=== PATIENT | female | born 1995 | race African-American/Black ===

== ENCOUNTER 2016-06-26 11:40 | Emergency (ER) | payer MEDICAID ==
--- NOTE | 2016-06-26 12:12 | ER Document Report ---
HPI - HPI Pain Level: 4 Context: 21 yo female c/o pain to right ear x 1 day. no fever. + sinus pressure Associated Symptoms: Sinus pain/drainage Exacerbated by: Denies Relieved by: Denies - ROS Systems Reviewed and Negative: Yes All other systems reviewed and negative - REPRODUCTIVE Reproductive: DENIES: : - DERM Skin Color: Normal Past Medical History - Social History Smoking Status: Never Smoker Frequency of alcohol use: None Drug Abuse: None Lives with: Family Family History: Arthritis, CVA, DM, Hypertension, Malignancy, Thyroid Disfunction Patient has suicidal ideation: No Patient has homicidal ideation: No - Past Medical History Cardiac Medical History: Reports: Hx Hypercholesterolemia Denies: Hx Atrial Fibrillation, Hx Congestive Heart Failure, Hx Heart Attack , Hx Hypertension Pulmonary Medical History: Reports: Hx Asthma - childhood Denies: Hx Bronchitis, Hx COPD, Hx Pneumonia, Hx Tuberculosis Neurological Medical History: Reports: Hx Migraine Renal/ Medical History: Reports: Hx Ovarian Cysts. Denies: Hx Peritoneal Dialysis GI Medical History: Denies: Hx Gastroesophageal Reflux Disease Musculoskeltal Medical History: Reports Hx Musculoskeletal Trauma - possible rib fraction Psychiatric Medical History: Reports: Hx Post Traumatic Stress Disorder Denies: Hx Bipolar Disorder, Hx Depression, Hx Schizophrenia Traumatic Medical History: Reports: Hx Fractures - possible rib fractures Past Surgical History: Reports: Hx Abdominal Surgery - 2016, Hx Section - 2014. Denies: Hx Appendectomy, Hx Bowel Surgery, Hx Cholecystectomy, Hx Hysterectomy, Hx Mastectomy, Hx Tonsillectomy, Hx Tubal Ligation - Immunizations Immunizations up to date: No Hx Diphtheria, Pertussis, Tetanus Vaccination: No Vertical Provider Document - CONSTITUTIONAL Agree With Documented VS: Yes Exam Limitations: No Limitations - INFECTION CONTROL TRAVEL OUTSIDE OF THE [place] IN LAST 30 DAYS: No - HEENT HEENT: Atraumatic, PERRLA, Tympanic Membrane Red - + soft cerumen in canal - NECK Neck: Normal Inspection, Supple - RESPIRATORY Respiratory: Breath Sounds Normal, No Respiratory Distress O2 Sat by Pulse Oximetry: 100 - CARDIOVASCULAR Cardiovascular: Regular Rate, Regular Rhythm - NEURO Level of Consciousness: Awake, Alert, Appropriate - DERM Integumentary: Warm, Dry Course - Vital Signs Vital signs: Temp Pulse Resp BP Pulse Ox 99.7 F 86 18 142/72 H 100 06/26/16 11:47 06/26/16 11:47 06/26/16 11:47 06/26/16 11:47 06/26/16 11:47 Discharge - Discharge Clinical Impression: Cerumen impaction Qualifiers: Laterality: bilateral Qualified Code(s): H61.23 - Impacted cerumen, bilateral Serous otitis media Qualifiers: Laterality: bilateral Chronicity: acute Recurrence: not specified as recurrent Qualified Code(s): H65.03 - Acute serous otitis media, bilateral Condition: Stable Disposition: HOME, SELF-CARE Instructions: Cerumen Impaction ([facility]) Additional Instructions: may use over the counter ear irrigation kit as needed recommend over the counter decongestant such as sudafed to help dry up fluid behind ear drum Motrin for discomfort follow up with primary care if symptoms persist or worsen Prescriptions: Ibuprofen [Motrin 800 Mg Tablet] 800 mg PO Q6H #20 tablet
[2016-06-26 13:00] VITALS: BP 132/72
== END 2016-06-26 13:00 | disposition home or self-care (01) ==
LOC: ER 11:40
DX: H65.03 Acute serous otitis media, bilateral (principal); H61.23 Impacted cerumen, bilateral; J34.89 Other specified disorders of nose and nasal sinuses
CPT/HCPCS: 99282